=== PATIENT | female | born 1990 | race Caucasian/White ===

== ENCOUNTER → 2018-04-30 | Outpatient (CLI) | payer MEDICAID | LOC: CIMAGING 12:49 | PROVIDERS: ATTEND Family Medicine | DX: R07.89 Other chest pain (principal); R91.8 Other nonspecific abnormal finding of lung field | CPT/HCPCS: 71046-PO ==

== ENCOUNTER → 2018-05-07 | Outpatient (CLI) | payer MEDICAID | LOC: CIMAGING 14:27 | PROVIDERS: ATTEND Family Medicine | DX: J90 Pleural effusion, not elsewhere classified (principal) | CPT/HCPCS: 71046-PO ==

== ENCOUNTER → 2018-05-07 | Outpatient (CLI) | payer MEDICAID | LOC: FIMAGING 15:55 | PROVIDERS: ATTEND Family Medicine | DX: R93.7 Abnormal findings on diagnostic imaging of other parts of musculoskeletal system (principal); M25.552 Pain in left hip; Z87.39 Personal history of other diseases of the musculoskeletal system and connective tissue ==